=== PATIENT | female | born 1990 | race Caucasian/White ===

== ENCOUNTER 2020-10-06 12:25 | Inpatient (IN) | payer OTHER ==
[2020-10-06] MEDS ORDERED: hydrALAZINE 20 MG/ML VIAL SLOW IVP PRN ×3 (13:01→22:20)
[2020-10-06] MEDS ORDERED: Ibuprofen 800 MG TAB PO PRN (13:46)
[2020-10-06] MEDS ORDERED: Ondansetron PF 4 MG/2 ML Vial IVP PRN (13:46)
[2020-10-06] MEDS ORDERED: Diphenoxylate HCl/Atropine Tablet PO PRN ×2 (13:46)
[2020-10-06] MEDS ORDERED: Lidocaine 1% (PF) 30 ML VIAL SC PRN (13:46)
[2020-10-06] MEDS ORDERED: Carboprost 250 MCG/ML AMP IM PRN (13:46)
[2020-10-06] MEDS ORDERED: Acetaminophen 500 MG TAB PO PRN (13:46)
[2020-10-06] MEDS ORDERED: Promethazine HCl 25 MG/ML VIAL IM PRN (13:46)
[2020-10-06] MEDS ORDERED: Butorphanol Tartrate 1 MG/ML VIAL SLOW IVP PRN (13:46)
[2020-10-06] MEDS ORDERED: HYDROcodone/Acetaminophen 5/325 mg Tablet PO PRN ×2 (13:46)
[2020-10-06] MEDS ORDERED: Misoprostol 200 MCG TAB PR PRN (13:46)
[2020-10-06 13:52] VITALS: BMI 29.3
[2020-10-06] MEDS ORDERED: NS w/ Oxytocin 30 units 500 ML IVPB PRN (13:52)
[2020-10-06] MEDS ORDERED: NS w/ Oxytocin 30 units 500 ML IVPB SCH (14:00)
[2020-10-06] MEDS: Lactated Ringer's 1,000 ML IV SCH (14:25)
[2020-10-06 15:05] LABS: #Monocytes 0.8 10x3/uL (0.0-1.1); #Neutrophils 8.9 10x3/uL (1.5-8.4); %Basophils 0.4 % (0.0-2.0); %Eosinophils 0.4 % (0.0-6.0); %Monocytes 6.9 % (0.0-10.0); %Neutrophils 77.6 % (40.0-75.0); Hemoglobin 11.1 g/dL (12.0-15.5); Mean Corpuscular HGB CONC 34.5 g/dL (32.0-36.0); Mean Corpuscular Hemoglobin 32.7 pg (27.0-33.0); Mean Platelet Volume 10.4 fl (7.4-10.4); Platelet Count 220 10x3/uL (150-450); RBC Distribution Width 12.3 % (11.5-14.5); Red Blood Cell (RBC) Count 3.39 10x6/uL (3.90-5.03); White Blood Cell (WBC) Count 11.4 10x3/uL (3.5-10.5)
[2020-10-06 15:11] LABS: ALT (SGPT) 11 U/L (8-55); AST (SGOT) 15 U/L (5-34); Albumin 3.2 g/dL (3.5-5.0); Alkaline Phosphatase 121 U/L (40-110); Anion Gap 13 mmol/L (10-20); BUN (Urea Nitrogen) 8 mg/dL (7.0-18.7); Bilirubin, Total 0.3 mg/dL (0.2-1.2); Calc. Creatinine Clearance 159 mL/min (70-130); Calcium 8.6 mg/dL (7.8-10.44); Carbon Dioxide 23 mmol/L (22-29); Chloride 105 mmol/L (98-107); Globulin 2.8 g/dL (2.4-3.5); Glucose 72 mg/dL (70-105); Potassium 3.5 mmol/L (3.5-5.1); Sodium 137 mmol/L (136-145)
[2020-10-06 15:28] LABS: Syphilis Antibody Nonreactive (Nonreactive); Syphilis Antibody Index 0.05 S/CO (<1.00 Non-Reactive)
[2020-10-06 15:29] LABS: Hep B Surf Ag Non-Reactive S/CO (NonReactive)
[2020-10-06] MEDS ORDERED: Milk Of Magnesia 30 ML UDCUP PO PRN (22:20)
[2020-10-06] MEDS ORDERED: traMADol HCl 50 MG TAB PO PRN (22:20)
[2020-10-06] MEDS ORDERED: Lanolin Ointment 7 GM TUBE TOP PRN (22:20)
[2020-10-06] MEDS ORDERED: Benzocaine-Menthol 82.5 ML CAN TOP PRN (22:20)
[2020-10-06] MEDS ORDERED: NS / Oxytocin 40 units/1000ml 1,000 ML IV SCH (22:30)
[2020-10-07] MEDS: Ferrous Sulfate 325 MG TAB PO SCH ×2 (07:29→07:30)
[2020-10-07] MEDS: Lactated Ringer's 1,000 ML IV SCH (08:34)
[2020-10-07] MEDS: Ibuprofen 800 MG TAB PO SCH ×3 (08:47→22:07)
[2020-10-07] MEDS: Prenatal Vitamin 1 TAB PO SCH (08:47)
[2020-10-07] MEDS: Docusate Calcium (SURFAK) 240 MG CAP PO SCH ×2 (08:47→22:07)
[2020-10-07 13:49] LABS: SARS-CoV-2 PCR NAA for Saliva Not Detected (NotDetected)
[2020-10-07] MEDS ORDERED: Adacel (T-DAP) 0.5 ML SYRINGE IM ONE (21:00)
[2020-10-08] MEDS: Ibuprofen 800 MG TAB PO SCH ×2 (05:23→13:58)
[2020-10-08 06:17] VITALS: TEMP 97.7
[2020-10-08] MEDS: Ferrous Sulfate 325 MG TAB PO SCH (07:46)
[2020-10-08] MEDS: Docusate Calcium (SURFAK) 240 MG CAP PO SCH (09:03)
[2020-10-08] MEDS: Prenatal Vitamin 1 TAB PO SCH (09:03)
[2020-10-08] MEDS ORDERED: Labetalol 100 MG TAB PO SCH ×2 (09:30→21:00)
[2020-10-08 19:55] VITALS: BP 135/86
== END 2020-10-08 19:45 | disposition home or self-care (01) | DRG 768 ==
LOC: CSHLD/OP 12:25 → CSHLD 17:45 → CSHPP 10-07 01:06
PROVIDERS: ADMIT Obstetrics & Gynecology; ATTEND Obstetrics & Gynecology
PROC: 3E033VJ Introduction of Other Hormone into Peripheral Vein, Percutaneous Approach (ICD-10-PCS; 2020-10-06)
PROC: 10E0XZZ Delivery of Products of Conception, External Approach (ICD-10-PCS; principal; 2020-10-07)
PROC: 0DQR0ZZ Repair Anal Sphincter, Open Approach (ICD-10-PCS; 2020-10-07)
DX: O13.4 Gestational [pregnancy-induced] hypertension without significant proteinuria, complicating childbirth (principal); Z37.0 Single live birth; Z3A.37 37 weeks gestation of pregnancy; Z20.822 Contact with and (suspected) exposure to COVID-19; O70.20 Third degree perineal laceration during delivery, unspecified
CPT/HCPCS: 36415; 80053; 85025; 86780; 86850; 86900; 86901; 87340; 87635; 99285; J2001; J2590; U0003; U0005